=== PATIENT | male | born 2000 | race Caucasian/White ===

== ENCOUNTER 2024-11-17 15:22 | Emergency (ER) | payer SELFPAY ==
[~2024-11-17] VITALS: Ht 175.3 cm; Wt 70.0 kg
[2024-11-17 15:25] VITALS: BP 142/80; PULSE 105; RESP 16; TEMP 37; O2SAT 100
[2024-11-17] MEDS: SODIUM CHLORIDE 0.9% 1,000 ML IV ONE ×2 (18:47→21:55)
[2024-11-17 19:29] LABS: CLARITY URINE CLEAR (CLEAR); COLOR URINE YELLOW (YELLOW); GLUCOSE URINE NEGATIVE (NEGATIVE); KETONES URINE 4+ (NEGATIVE); LEUKOCYTE ESTERASE URINE NEGATIVE (NEGATIVE); NITRITE URINE NEGATIVE (NEGATIVE); OCCULT BLOOD URINE NEGATIVE (NEGATIVE); PH URINE 5.5 (4.5-8.0); PROTEIN URINE TRACE (NEGATIVE); SPECIFIC GRAVITY URINE 1.029 (1.005-1.030); UROBILINOGEN URINE 0.2 E.U./dL (0.2-1.0)
[2024-11-17 19:30] LABS: CHLORIDE 106 mEq/L (98-107); POTASSIUM 4.6 mEq/L (3.5-5.1); SODIUM 138 mEq/L (136-145)
[2024-11-17 19:31] LABS: BASOPHILS % 0.4 % (0.0-2.0); CARBON DIOXIDE 16 mEq/L (21-32); EOSINOPHILS % 0.1 % (0.0-5.0); HEMATOCRIT. 39.7 % (42.0-52.0); HEMOGLOBIN. 13.1 g/dL (14.0-18.0); LYMPHOCYTES % 19.7 % (20.0-50.0); MEAN CORPUSCULAR VOLUME 87.7 fL (80.0-94.0); MEAN PLATELET VOLUME 9.2 fl (7.4-10.4); MONOCYTES % 9.5 % (2.0-8.0); NEUTROPHILS % 70.3 % (40.0-76.0); PLATELET 298 x1000/uL (130-400); RED BLOOD CELL COUNT 4.52 mill/uL (4.7-6.1); RED CELL DISTRIBUTION WIDTH 13.5 % (11.6-14.6); WHITE BLOOD COUNT 10.1 x1000/uL (4.5-11.0)
[2024-11-17 19:36] LABS: CREATININE 1.1 mg/dL (0.6-1.3); GLUCOSE 75 mg/dL (70-105); UREA NITROGEN BLOOD 10 mg/dL (9-23)
[2024-11-17 19:38] LABS: ALANINE AMINOTRANSFERASE 22 IU/L (10-49); ALBUMIN 4.2 g/dL (3.2-4.8); ASPARTATE AMINOTRANSFERASE 78 IU/L (<34); BILIRUBIN TOTAL 0.7 mg/dL (0.1-1.0); PROTEIN TOTAL 6.4 g/dL (6.0-8.3)
[2024-11-17 20:31] LABS: CREATINE KINASE 3234 IU/L (46-171)
[2024-11-17 21:05] LABS: BACTERIA URINE TRACE; RBC URINE NONE SEEN /hpf (0-2); SQUAMOUS EPITHELIAL CELL URINE RARE /lpf (RARE/1+); WBC URINE 0-2 /hpf (0-2)
[2024-11-18 01:47] LABS: TROPONIN I HIGH SENSITIVITY 6 ng/L (3.0-53)
== END 2024-11-18 01:52 | disposition home or self-care (01) ==
LOC: ER 15:22
DX: M62.82 Rhabdomyolysis (principal); Z88.0 Allergy status to penicillin
CPT/HCPCS: 99284; 96360; 96361; 80053; 81003; 82550; 85025; 36415; 71101; 84484; J7030

== ENCOUNTER 2024-11-18 03:48 | Inpatient (IN) | payer SELFPAY ==
[~2024-11-18] VITALS: Ht 172.7 cm; Wt 68.1 kg
[2024-11-18] MEDS: SODIUM CHLORIDE 0.9% 1,000 ML IV ONE ×2 (04:26→07:05)
[2024-11-18 05:32] LABS: CHLORIDE 109 mEq/L (98-107); POTASSIUM 4.1 mEq/L (3.5-5.1); SODIUM 140 mEq/L (136-145)
[2024-11-18 05:33] LABS: CARBON DIOXIDE 14 mEq/L (21-32)
[2024-11-18 05:34] LABS: CALCIUM 8.8 mg/dL (8.7-10.4)
[2024-11-18 05:35] LABS: HEMATOCRIT. 36.4 % (42.0-52.0); MEAN CORPUSCULAR HEMOGLOBIN 28.8 pg (28.0-32.0); MEAN CORPUSCULAR HGB CONC 32.9 g/dL (31.0-37.0); MEAN CORPUSCULAR VOLUME 87.4 fL (80.0-94.0); MEAN PLATELET VOLUME 9.7 fl (7.4-10.4); PLATELET 250 x1000/uL (130-400); RED BLOOD CELL COUNT 4.17 mill/uL (4.7-6.1); RED CELL DISTRIBUTION WIDTH 13.8 % (11.6-14.6); WHITE BLOOD COUNT 11.2 x1000/uL (4.5-11.0)
[2024-11-18 05:37] LABS: DIFFERENTIAL COMMENT 1
[2024-11-18 05:38] LABS: CREATININE 1.2 mg/dL (0.6-1.3)
[2024-11-18 05:39] LABS: GLUCOSE 79 mg/dL (70-105); UREA NITROGEN BLOOD 11 mg/dL (9-23)
[2024-11-18 05:51] LABS: CREATINE KINASE 4510 IU/L (46-171)
[2024-11-18 06:53] LABS: PLATELET ESTIMATE NORMAL
[2024-11-18 09:00] VITALS: BP 117/78; PULSE 78; RESP 18; TEMP 36.6
[2024-11-18 12:00] VITALS: BP 100/54; PULSE 73; RESP 16; TEMP 36.7; O2SAT 98
[2024-11-18] MEDS ORDERED: DOCUSATE SODIUM 100MG CAPSULE PO PRN (14:30)
[2024-11-18] MEDS ORDERED: MAGNESIUM/ALUMINUM HYDROXIDE/SIMETHICONE 30ML UDC PO PRN (14:30)
[2024-11-18] MEDS ORDERED: CLONIDINE 0.1MG TABLET PO PRN (14:30)
[2024-11-18] MEDS ORDERED: ONDANSETRON HCL 4MG/2ML INJ IV PRN (14:30)
[2024-11-18] MEDS ORDERED: GUAIFENESIN 200MG/10ML SUGAR FREE UDC PO PRN (14:30)
[2024-11-18] MEDS: SODIUM CHLORIDE 0.9% 1,000 ML IV SCH (14:52)
[2024-11-18 16:00] VITALS: BP 112/61; PULSE 72; RESP 16; TEMP 37.2; O2SAT 98
[2024-11-18 18:20] LABS: CLARITY URINE CLEAR (CLEAR); COLOR URINE YELLOW (YELLOW); GLUCOSE URINE NEGATIVE (NEGATIVE); KETONES URINE 3+ (NEGATIVE); LEUKOCYTE ESTERASE URINE NEGATIVE (NEGATIVE); NITRITE URINE NEGATIVE (NEGATIVE); OCCULT BLOOD URINE NEGATIVE (NEGATIVE); PH URINE 5.5 (4.5-8.0); PROTEIN URINE NEGATIVE (NEGATIVE); SPECIFIC GRAVITY URINE 1.013 (1.005-1.030); UROBILINOGEN URINE 0.2 E.U./dL (0.2-1.0)
[2024-11-18 18:40] LABS: *AMPHETAMINES SCREEN URINE NEGATIVE (NEGATIVE)
[2024-11-18 18:41] LABS: *BARBITURATES SCREEN URINE NEGATIVE (NEGATIVE); *BENZODIAZEPINES SCREEN URINE NEGATIVE (NEGATIVE); *COCAINE SCREEN URINE NEGATIVE (NEGATIVE); CANNABINOID URINE SCREEN PRESUMPTIVE POSITIVE (NEGATIVE); ECSTASY MDMA SCREEN URINE NEGATIVE (NEGATIVE); METHADONE URINE SCREEN NEGATIVE (NEGATIVE); OPIATES URINE SCREEN NEGATIVE (NEGATIVE); PHENCYCLIDINE URINE SCREEN NEGATIVE (NEGATIVE)
[2024-11-18] MEDS: AMOXICILLIN/POTASSIUM CLAVULANATE 875/125MG TAB PO SCH (18:52)
[2024-11-18 20:00] VITALS: BP 117/66; PULSE 89; RESP 20; TEMP 37.2; O2SAT 98
[2024-11-18 20:09] LABS: CREATINE KINASE 3078 IU/L (46-171)
[2024-11-19] VITALS: BP 120/57; PULSE 67; RESP 18; TEMP 36.5; O2SAT 100
[2024-11-19 02:05] LABS: CREATINE KINASE 2723 IU/L (46-171)
[2024-11-19 04:00] VITALS: BP 100/47; PULSE 58; RESP 18; TEMP 36.5; O2SAT 99
[2024-11-19] MEDS: ACETAMINOPHEN 325MG TABLET PO PRN (04:00)
[2024-11-19 07:51] LABS: CREATINE KINASE 2173 IU/L (46-171)
[2024-11-19 09:03] LABS: BASOPHILS % 0.7 % (0.0-2.0); HEMATOCRIT. 33.2 % (42.0-52.0); HEMOGLOBIN. 10.9 g/dL (14.0-18.0); LYMPHOCYTES % 21.4 % (20.0-50.0); MEAN CORPUSCULAR HEMOGLOBIN 28.7 pg (28.0-32.0); MEAN CORPUSCULAR HGB CONC 32.9 g/dL (31.0-37.0); MEAN CORPUSCULAR VOLUME 87.2 fL (80.0-94.0); MEAN PLATELET VOLUME 9.8 fl (7.4-10.4); MONOCYTES % 9.3 % (2.0-8.0); NEUTROPHILS % 67.6 % (40.0-76.0); PLATELET 199 x1000/uL (130-400); RED CELL DISTRIBUTION WIDTH 13.8 % (11.6-14.6); WHITE BLOOD COUNT 5.3 x1000/uL (4.5-11.0)
[2024-11-19 10:00] VITALS: BP 123/69; PULSE 78; RESP 20; TEMP 36.7; O2SAT 100
[2024-11-19 12:00] VITALS: BP 116/68; PULSE 84; RESP 19; TEMP 36.7; O2SAT 100
[2024-11-19 12:50] LABS: HEMATOCRIT 34.1 % (42.0-52.0); HEMOGLOBIN 11.5 g/dL (14.0-18.0); MEAN CORPUSCULAR HEMOGLOBIN 28.8 pg (28.0-32.0); MEAN CORPUSCULAR HGB CONC 33.7 g/dL (31.0-37.0); MEAN CORPUSCULAR VOLUME 85.4 fL (80.0-94.0); PLATELET 209 x1000/uL (130-400); RED BLOOD CELL COUNT 3.99 mill/uL (4.7-6.1); RED CELL DISTRIBUTION WIDTH 13.6 % (11.6-14.6); WHITE BLOOD COUNT 4.9 x1000/uL (4.5-11.0)
[2024-11-19 13:07] LABS: CALCIUM 8.2 mg/dL (8.7-10.4); CARBON DIOXIDE 23 mEq/L (21-32); CHLORIDE 111 mEq/L (98-107); POTASSIUM 4.2 mEq/L (3.5-5.1); SODIUM 142 mEq/L (136-145)
[2024-11-19 13:12] LABS: CREATININE 0.9 mg/dL (0.6-1.3)
[2024-11-19 13:13] LABS: GLUCOSE 92 mg/dL (70-105)
[2024-11-19 13:23] LABS: CREATINE KINASE 1949 IU/L (46-171)
[2024-11-19 13:45] LABS: UREA NITROGEN BLOOD < 5 mg/dL (9-23)
[2024-11-19] MEDS: PANTOPRAZOLE 40MG DR TABLET PO SCH (14:26)
[2024-11-19 16:00] VITALS: BP 119/71; PULSE 79; RESP 20; TEMP 36.7; O2SAT 100
[2024-11-19 20:00] VITALS: BP 154/83; PULSE 60; RESP 18; TEMP 36.3; O2SAT 96
[2024-11-19] MEDS: KETOROLAC 15MG/ML VIAL IV NR (21:20)
[2024-11-20] VITALS: BP 131/69; PULSE 60; RESP 18; TEMP 36.3; O2SAT 100
[2024-11-20 04:00] VITALS: BP 125/84; PULSE 96; RESP 18; TEMP 36.7; O2SAT 97
[2024-11-20 07:43] LABS: CALCIUM 8.2 mg/dL (8.7-10.4); CHLORIDE 108 mEq/L (98-107); POTASSIUM 3.6 mEq/L (3.5-5.1); SODIUM 142 mEq/L (136-145)
[2024-11-20 07:44] LABS: CARBON DIOXIDE 23 mEq/L (21-32)
[2024-11-20 07:49] LABS: CREATININE 0.8 mg/dL (0.6-1.3); GLUCOSE 75 mg/dL (70-105)
[2024-11-20 07:59] LABS: HEMOGLOBIN 11.5 g/dL (14.0-18.0); MEAN CORPUSCULAR VOLUME 85.4 fL (80.0-94.0); PLATELET 213 x1000/uL (130-400); RED BLOOD CELL COUNT 3.98 mill/uL (4.7-6.1); RED CELL DISTRIBUTION WIDTH 13.6 % (11.6-14.6)
[2024-11-20 08:32] LABS: UREA NITROGEN BLOOD < 5 mg/dL (9-23)
[2024-11-20 11:20] LABS: CREATINE KINASE 1724 IU/L (46-171)
[2024-11-20 12:00] VITALS: BP 144/60; PULSE 60; RESP 18; TEMP 36.2; O2SAT 99
[2024-11-20] MEDS: POLYETHYLENE GLYCOL 3350 (17GM) 1 DOSE PACK PO SCH (13:30)
[2024-11-20 16:00] VITALS: BP 141/61; PULSE 82; RESP 16; TEMP 36.5; O2SAT 98
[2024-11-20 20:00] VITALS: BP 143/83; PULSE 55; RESP 18; TEMP 36.6; O2SAT 98
[2024-11-21] VITALS: BP 139/89; PULSE 66; RESP 18; TEMP 36.3; O2SAT 99
[2024-11-21] MEDS: KETOROLAC 15MG/ML VIAL IV PRN (00:04)
[2024-11-21 01:15] LABS: HEMATOCRIT 34.6 % (42.0-52.0); HEMOGLOBIN 11.7 g/dL (14.0-18.0); MEAN CORPUSCULAR HEMOGLOBIN 28.9 pg (28.0-32.0); MEAN CORPUSCULAR HGB CONC 33.9 g/dL (31.0-37.0); MEAN CORPUSCULAR VOLUME 85.1 fL (80.0-94.0); PLATELET 236 x1000/uL (130-400); RED BLOOD CELL COUNT 4.06 mill/uL (4.7-6.1); RED CELL DISTRIBUTION WIDTH 13.3 % (11.6-14.6)
[2024-11-21 01:31] LABS: CREATINE KINASE 1113 IU/L (46-171); PHOSPHORUS 3.3 mg/dL (2.5-4.9)
[2024-11-21 04:00] VITALS: BP 136/86; PULSE 57; RESP 18; TEMP 36.7; O2SAT 94
[2024-11-21 08:00] VITALS: BP 142/83; PULSE 78; RESP 18; TEMP 36.6; O2SAT 97
[2024-11-21 08:05] LABS: CARBON DIOXIDE 24 mEq/L (21-32); CHLORIDE 111 mEq/L (98-107); POTASSIUM 3.8 mEq/L (3.5-5.1); SODIUM 143 mEq/L (136-145)
[2024-11-21 08:06] LABS: CALCIUM 8.4 mg/dL (8.7-10.4)
[2024-11-21 08:11] LABS: CREATINE KINASE 838 IU/L (46-171); CREATININE 0.8 mg/dL (0.6-1.3); GLUCOSE 75 mg/dL (70-105)
[2024-11-21 08:12] LABS: HEMOGLOBIN 11.7 g/dL (14.0-18.0); MEAN CORPUSCULAR HEMOGLOBIN 28.6 pg (28.0-32.0); MEAN CORPUSCULAR HGB CONC 33.4 g/dL (31.0-37.0); MEAN CORPUSCULAR VOLUME 85.7 fL (80.0-94.0); PLATELET 224 x1000/uL (130-400); RED BLOOD CELL COUNT 4.09 mill/uL (4.7-6.1); RED CELL DISTRIBUTION WIDTH 13.4 % (11.6-14.6); WHITE BLOOD COUNT 4.9 x1000/uL (4.5-11.0)
[2024-11-21 08:30] LABS: UREA NITROGEN BLOOD < 5 mg/dL (9-23)
[2024-11-21] MEDS ORDERED: POLY17PO3 MT (09:36)
[2024-11-21] MEDS ORDERED: AMOX1TAB16 MT (09:36)
[2024-11-21] MEDS ORDERED: PANT20TA17 MT (09:36)
[2024-11-21] MEDS ORDERED: ACET-2708 PO (09:36)
[2024-11-21 10:20] VITALS: BP 168/103; PULSE 78; TEMP 97.8; O2SAT 95
== END 2024-11-21 11:00 | disposition home or self-care (01) | DRG 351 ==
LOC: ER 03:48 → 5WST 06:37 → EDBEDREQ 06:51 → EDBEDREQTM 06:51
PROVIDERS: ADMIT Internal Medicine; ATTEND Internal Medicine
DX: M62.82 Rhabdomyolysis (principal); E87.20 Acidosis, unspecified; E83.51 Hypocalcemia; D64.9 Anemia, unspecified; D72.829 Elevated white blood cell count, unspecified; S40.811A Abrasion of right upper arm, initial encounter; E86.0 Dehydration; Y04.1XXA Assault by human bite, initial encounter; F90.9 Attention-deficit hyperactivity disorder, unspecified type; M79.651 Pain in right thigh; M79.652 Pain in left thigh; S10.81XA Abrasion of other specified part of neck, initial encounter; S40.812A Abrasion of left upper arm, initial encounter; S80.812A Abrasion, left lower leg, initial encounter; S80.811A Abrasion, right lower leg, initial encounter; R39.16 Straining to void; Y93.89 Activity, other specified; Y92.89 Other specified places as the place of occurrence of the external cause; Y99.8 Other external cause status; Z79.899 Other long term (current) drug therapy; Z88.0 Allergy status to penicillin
CPT/HCPCS: 36415; 80048; 80305; 81003; 82550; 83735; 84100; 85025; 85027; 93005; 97166; 97530; 99285; J1885; J7030